=== PATIENT | male | born 1970 | race Caucasian/White ===

== ENCOUNTER 2021-07-25 08:13 | Day surgery (SDC) | payer OTHER ==
[~2021-07-25] VITALS: Ht 167.6 cm; Wt 70.5 kg
[~2021-07-25 08:13] MED LIST: Norco 5-325 Ta1 EACH PO
== END 2021-07-25 10:47 | disposition home or self-care (01) ==
LOC: ORSCSDS 08:13
PROVIDERS: Student in an Organized Health Care Education/Training Program
PROC: 0DBN8ZX Excision of Sigmoid Colon, Via Natural or Artificial Opening Endoscopic, Diagnostic (ICD-10-PCS; principal; 2021-07-25 09:45)
PROC: 0DBH8ZX Excision of Cecum, Via Natural or Artificial Opening Endoscopic, Diagnostic (ICD-10-PCS; principal; 2021-07-25 09:45)
PROC: 0DBL8ZX Excision of Transverse Colon, Via Natural or Artificial Opening Endoscopic, Diagnostic (ICD-10-PCS; principal; 2021-07-25 09:45)
DX: Z12.11 Encounter for screening for malignant neoplasm of colon (principal); D12.3 Benign neoplasm of transverse colon; N40.0 Benign prostatic hyperplasia without lower urinary tract symptoms; F17.210 Nicotine dependence, cigarettes, uncomplicated
CPT/HCPCS: 88305; J2704; J7120